=== PATIENT | male | born 1990 | race Caucasian/White ===

== ENCOUNTER → 2020-07-11 | Outpatient (CLI) | payer OTHER ==
--- NOTE | 2020-07-11 14:18 | RAD ---
Exam Date: 07/11/2020 1:[address] HEAD AND MAXILLOFACIAL WO Indication: Reason: HEADACHES / Spl. Instructions: / History: TECHNIQUE: Head CT was performed without intravenous contrast. One or more of the following dose re duction techniques were utilized: *Automated exposure control (AEC) *Adjustment of mA and/or kV according to patient size *Use of iterative reconstruction technique *CT scan done according to ALARA, or ALARA/IMAGE GENTLY FINDINGS: The ventricles and sulci are normal for the patient's stated age. There is no evidence of acute int racranial hemorrhage, extra-axial collection, mass effect, midline shift, or acute territorial infarc t. No lesion of the skull base or the calvarium is seen. IMPRESSION: No evidence for acute intracranial abnormality. Exam Date: 07/11/2020 1:[address] HEAD AND MAXILLOFACIAL WO INDICATION: Reason: HEADACHES / Spl. Instructions: / History: TECHNIQUE: Multiple axial and coronal sections of the face were obtained without the administration o f IV contrast. One or more of the following dose reduction techniques were utilized: *Automated exposure control (AEC) *Adjustment of mA and/or kV according to patient size *Use of iterative reconstruction technique *CT scan done according to ALARA, or ALARA/IMAGE GENTLY FINDINGS: There is a small retention cyst in the left maxillary sinus. The frontal, ethmoid, sphenoid, and maxillary sinuses are otherwise within normal limits. Bilateral osteomeatal complexes are patent. The nasal septum is deviated to the left. The nasal turbinates and meati are otherwise within normal limits. No acute fracture or dislocation is identified. The cribriform plate appears intact. The orbits are w ithin normal limits. Visualized mastoid air cells are normal. The limited evaluation of brain parench yma demonstrates no focal acute abnormality. IMPRESSION: Small retention cyst in the left maxillary sinus. Visualized paranasal sinuses are otherwise within n ormal limits. Electronically signed by: Syd Harper MD (07/11/2020 2:15 PM) [id number]
== END ==
LOC: CT 13:28
PROVIDERS: ATTEND Family Medicine Sports Medicine
DX: J34.1 Cyst and mucocele of nose and nasal sinus (principal); J34.2 Deviated nasal septum
CPT/HCPCS: 70450; 70486